=== PATIENT | female | born 1940 | race Caucasian/White ===

== ENCOUNTER 2016-08-14 08:25 | Emergency (ER) | payer MEDICARE, BC ==
[2016-08-14 08:50] VITALS: BP 154/69
--- NOTE | 2016-08-14 09:37 | ED Physician Documentation ---
PD HPI OPHTHO - Stated complaint Stated Complaint: BOTH EYE ITCH - Chief complaint Chief Complaint: Heent - History obtained from History obtained from: Patient - History of Present Illness Timing - onset: Yesterday Timing - duration: Days (05/15) Timing - details: Gradual onset, Still present Location: Both (yesterday left eye felt itchy and was some red, with matting closed this morning. Right eye feeling itchy today without matting yet. Normal vision. No contacts nor FBs.) Associated symptoms: Redness, Tearing, Matting. No: Decreased vision Contributing factors: No: Exposed to conjunctivitis, Recent URI, FB, Wears contacts Similar symptoms before: Has not had sx before Recently seen: Not recently seen Review of Systems Constitutional: denies: Fever, Chills Nose: denies: Rhinorrhea / runny nose, Congestion Throat: denies: Sore throat Respiratory: denies: Dyspnea, Cough Skin: denies: Rash, Lesions PD PAST MEDICAL HISTORY - Past Medical History Cardiovascular: Hypertension, High cholesterol Endocrine/Autoimmune: HyPOthyroidism - Past Surgical History Past Surgical History: Yes Ortho: Spine surgery /STAFF RN: Hysterectomy - Present Medications Home Medications: Ambulatory Orders Medication Instructions Recorded Confirmed Aspirin [Aspir-Low] 81 mg PO DAILY 09/22/13 08/14/16 Felodipine [Plendil] 10 mg PO DAILY 09/22/13 08/14/16 Fexofenadine [Gita] 180 mg PO DAILY 09/22/13 08/14/16 Levothyroxine [Synthroid] 75 mcg PO DAILY 09/22/13 08/14/16 Losartan [Cozaar] 100 mg PO DAILY 09/22/13 08/14/16 Atorvastatin [Lipitor] 20 mg ORAL QPM 08/14/16 08/14/16 Fexofenadine HCl [Gita Allergy] 180 mg PO DAILY PRN 08/14/16 08/14/16 Multivit-Min/Folic Acid/Biotin 1 each PO DAILY 08/14/16 08/14/16 [Women Multivit W-Biotin Gummy] Sulfacetamide Sodium [Bleph-10] 2 drops EACHEYE QID #1 bottle 08/14/16 - Allergies Allergies/Adverse Reactions: Allergies Allergy/AdvReac Type Severity Reaction Status Date / Time No Known Drug Allergies Allergy Verified 08/14/16 08:32 - Social History Does the pt smoke?: No Smoking Status: Never smoker Does the pt drink ETOH?: Yes PD ED PE NORMAL - Vitals Vital signs reviewed: Yes - General General: Alert and oriented X 3, No acute distress, Well developed/nourished - HEENT HEENT: PERRL (not light sensitive), EOMI, Other (redness with mild conjunctival swelling left. No dye utake on either eye. ) Results - Vitals Vitals: Vital Signs - 24 hr 08/14/16 08:31 Temperature 36.5 C Heart Rate 74 Respiratory 16 Rate Blood Pressure 154/69 H O2 Saturation 99 Oxygen O2 Source Room air Departure - Departure Disposition: Home, Self Care Clinical Impression: Conjunctivitis Qualifiers: Conjunctivitis type: acute Acute conjunctivitis type: unspecified Laterality: bilateral Qualified Code(s): H10.33 - Unspecified acute conjunctivitis, bilateral Condition: Stable Record reviewed to determine appropriate education?: Yes Instructions: ED Conjunctivitis Nonspecific, ED Conjunctivitis Bacterial Follow-Up: Tara Hdz MD [Primary Care Provider] - Prescriptions: Sulfacetamide Sodium [Bleph-10] 2 drops EACHEYE QID #1 bottle Comments: Usual medications. Use some antihistamine eye drops (Example Visine-A) 2-3 times daily. Blephamide eye drops 4 times daily for 3-4 days. Recheck if not better over the next 1-2 days. Discharge Date/Time: 08/14/16 10:19
== END 2016-08-14 10:19 | disposition home or self-care (01) ==
LOC: ED 08:25
DX: H10.33 Unspecified acute conjunctivitis, bilateral (principal); I10 Essential (primary) hypertension; E78.00 Pure hypercholesterolemia, unspecified; E03.9 Hypothyroidism, unspecified; Z79.82 Long term (current) use of aspirin
CPT/HCPCS: 99283

== ENCOUNTER 2019-03-20 11:10 | Outpatient (CLI) | payer MEDICARE, BC ==
[2019-03-20 11:34] LABS: BASOPHILS % (AUTO) 0.4 %; EOSINOPHILS % (AUTO) 0.2 %; HGB - HEMOGLOBIN 14.6 g/dL (12.0-16.0); LYMPHOCYTES % (AUTO) 66.3 %; MEAN CORPUSCULAR HEMOGLOBIN 31.1 pg (27.0-31.0); MEAN CORPUSCULAR HGB CONC 32.4 g/dL (32.0-36.0); MEAN PLATELET VOLUME 10.9 fL (7.9-10.8); MONOCYTES % (AUTO) 11.5 %; NEUTROPHILS % (AUTO) 21.2 %; PLT - PLATELET COUNT 211 10^3/uL (130-450); RED CELL DISTRIBUTION WIDTH 12.7 % (12.0-15.0); WHITE BLOOD COUNT 30.7 x10^3/uL (4.8-10.8)
[2019-03-20 11:45] LABS: ABNORMAL LYMPHS % (MANUAL) 0 %; BAND NEUTROPHILS % (MANUAL) 0 %
[2019-03-20 11:46] LABS: INR 1.4 (0.8-1.2); PT - PROTHROMBIN TIME 15.2 secs (9.9-12.6)
[2019-03-20 11:48] LABS: CALCIUM 9.8 mg/dL (8.5-10.3); CREATININE 0.8 mg/dL (0.4-1.0)
[2019-03-20 12:59] LABS: LYMPHOCYTES # (MANUAL) 21.5 10^3/uL (1.5-3.5); LYMPHOCYTES % (MANUAL) 62 %; MONOCYTES # (MANUAL) 0.6 10^3/uL (0.0-1.0)
[2019-03-20 13:00] LABS: RBC MORPHOLOGY (MULTIPLE) 1+ ANISOCYTOSIS (NORMAL)
[2019-03-20 13:01] LABS: DIFFERENTIAL COMMENT MANUAL DIFFERENTIAL
== END 2019-03-20 11:11 | disposition home or self-care (01) ==
LOC: LAB 11:10
PROVIDERS: ATTEND Internal Medicine Cardiovascular Disease
DX: I48.91 Unspecified atrial fibrillation (principal); R00.2 Palpitations
CPT/HCPCS: 36415; 80048; 85025; 85610

== ENCOUNTER 2020-01-15 16:27 | Outpatient (CLI) | payer MEDICARE, BC ==
[2020-01-15 16:40] LABS: BILIRUBIN,URINE NEGATIVE (NEGATIVE); GLUCOSE, URINE (UA) NEGATIVE (NEGATIVE); KETONES,URINE (UA) NEGATIVE (NEGATIVE); LEUKOCYTE ESTERASE, URINE NEGATIVE (NEGATIVE); NITRITE,URINE NEGATIVE (NEGATIVE); OCCULT BLOOD,URINE LARGE (NEGATIVE); PH,URINE 6.5 PH (5.0-7.5); PROTEIN,URINE NEGATIVE (NEGATIVE); UROBILINOGEN,URINE 0.2 (NORMAL) E.U./dL (NORMAL)
[2020-01-15 16:41] LABS: CLARITY,URINE CLEAR (CLEAR)
[2020-01-15 16:48] LABS: BACTERIA,URINE None Seen /HPF (None Seen); RBC,URINE TNTC /HPF (0-5); SQUAMOUS EPITHELIAL CELL,UR NONE SEEN (<= Few)
== END 2020-01-15 16:28 | disposition home or self-care (01) ==
LOC: LAB 16:27
PROVIDERS: ATTEND Internal Medicine Hematology & Oncology
DX: C91.10 Chronic lymphocytic leukemia of B-cell type not having achieved remission (principal); Z79.899 Other long term (current) drug therapy
CPT/HCPCS: 81001; 81003